=== PATIENT | female | born 1960 | race Hispanic/Latino ===

== ENCOUNTER 2020-09-17 13:15 | Emergency (ER) | payer MEDICARE ==
[2020-09-17] MEDS ORDERED: ACETAMINOPHEN 325 MG TAB PO ONE (14:59)
--- NOTE | 2020-09-17 15:53 | Cat Scan Report ---
CT head/brain wo con INDICATION / CLINICAL INFORMATION: 60 years Female; fall out of bed, neck pain. TECHNIQUE: Routine CT head without contrast. All CT scans at this location are performed using CT dos e reduction for ALARA by means of automated exposure control. COMPARISON: None. FINDINGS: BRAIN / INTRACRANIAL CONTENTS: There is mild cerebral white matter disease most consistent with micro vascular angiopathy. Findings a most notable along the left frontal horn. There is also mild cerebral atrophy along with mild prominence of the ventricular system. There is no clear CT evidence of acute intracranial hemorrhage or significant mass effect. ORBITS: No significant abnormality of visualized orbits. SINUSES / MASTOIDS: There is mild focal opacification within the visualized maxillary sinuses bilater ally. CRANIOCERVICAL JUNCTION: No significant abnormality. ADDITIONAL FINDINGS: There is mild incidental hyperostosis frontalis interna. IMPRESSION: 1. This mild microvascular angiopathy without CT evidence of acute intracranial hemorrhage. Signer Name: Anibal Lester MD Signed: 09/17/2020 3:49 PM Workstation Name: [id number]
--- NOTE | 2020-09-17 16:01 | Cat Scan Report ---
CT cervical spine wo con INDICATION / CLINICAL INFORMATION: 60 years Female; fall out of bed, neck pain. TECHNIQUE: Axial CT images of the cervical spine were obtained. Sagittal and coronal reformatted images were pr oduced. All CT scans at this location are performed using CT dose reduction for ALARA by means of aut omated exposure control. COMPARISON: None available. FINDINGS: POST-SURGICAL CHANGES: None. ALIGNMENT: There is slight curvature of the cervical spine, convex toward the right. Additionally, th ere is minimal anterolisthesis at C3-L4 and C4-5 which may be on a degenerative basis. VERTEBRAE: There is no clear CT evidence of acute fracture involving the cervical spine at. There are milder degenerative endplate changes anteriorly from C3-4 to C6-7. This anterior osteophytic formati on at C5-6. INTRAVERTEBRAL DISCS: This broad-based right-sided disco bulge at C3 L4 which appears to mildly lucio en the right ventral cord and encroaches on the right lateral recess. Mild right neural foraminal pedrito rowing. The central disco bulge and ligamentum flavum hypertrophy at C4 L5 appears to result in mild to moder ate deformity of the ventral cord. Furthermore, there is similar degree of right foraminal narrowing. The disc bulge at C5-6 effaces the ventral subarachnoid space at. There is moderate right neural fora shawn narrowing at. There is similar degree of foraminal narrowing on the right at C6-7. PARASPINAL SOFT TISSUES: No prevertebral soft tissue fluid collections are identified. ADDITIONAL FINDINGS: None. IMPRESSION: 1. There is no CT evidence of acute fracture involving the cervical spine. 2. There are multilevel degenerative changes as detailed above. Signer Name: Anibal Lester MD Signed: 09/17/2020 3:57 PM Workstation Name: [id number]
--- NOTE | 2020-09-17 16:17 | XRay Report ---
LEFT SHOULDER 3 VIEWS INDICATION / CLINICAL INFORMATION: fall out of bed, left shoulder pain. COMPARISON: None available. FINDINGS: There appears to be a minimally displaced fracture of the very distal end of the clavicle. Humerus and glenoid fossa are unremarkable. Signer Name: Germain Shafer MD Signed: 09/17/2020 4:13 PM Workstation Name: [id number]
--- NOTE | 2020-09-17 16:57 | Emergency Department Report ---
ED Fall HPI - General Chief Complaint: Fall Stated Complaint: FALL/SHOULDER INJURY/LOW GLUCOSE Time Seen by Provider: 09/17/20 14:59 Source: patient, family Mode of arrival: Ambulatory - History of Present Illness Initial Comments: Patient is a 60-year-old female presents emergency room with complaints of a fall that occurred yesterday morning. Patient states that she fell out of the bed. She is currently in a facility. The caregiver at the facility thought that maybe her sugar had dropped and that is why she fell, but her sugar log shows all stable blood sugar readings. The patient states that she has left shoulder pain and neck pain. She denies any hitting her head or loss of consciousness. She denies any dizziness, chest pain, shortness of breath, weakness prior to the fall. She states that she believes she may have just rolled over and fell out of bed. She denies any vision changes, vomiting, numbness, unilateral weakness, bowel or bladder incontinence. She has a past medical history of diabetes. She has an allergy to atorvastatin, penicillin, sulfa. - Related Data Previous Rx's Medication Instructions Recorded Last Taken Type Acetaminophen [Tylenol] 650 mg PO Q8HR PRN #20 capsule 09/17/20 Unknown Rx Allergies Allergy/AdvReac Type Severity Reaction Status Date / Time atorvastatin [From Lipitor] Allergy Unknown Verified 09/17/20 13:35 Penicillins Allergy Unknown Verified 09/17/20 13:35 Sulfa (Sulfonamide Allergy Unknown Verified 09/17/20 13:35 Antibiotics) ED Review of Systems ROS: Stated complaint: FALL/SHOULDER INJURY/LOW GLUCOSE Other details as noted in HPI Comment: All other systems reviewed and negative ED Past Medical Hx - Past Medical History Previous Medical History?: No Additional medical history: Scoliosis - Surgical History Past Surgical History?: Yes Additional Surgical History: cataract - Medications Home Medications: Home Medications Medication Instructions Recorded Confirmed Last Taken Type Acetaminophen [Tylenol] 650 mg PO Q8HR PRN #20 capsule 09/17/20 Unknown Rx ED Physical Exam - General Limitations: No Limitations General appearance: alert, in no apparent distress - Head Head exam: Present: atraumatic, normocephalic - Eye Eye exam: Present: normal appearance, PERRL, EOMI. Absent: periorbital swelling, periorbital tenderness - ENT ENT exam: Present: mucous membranes moist - Neck Neck exam: Present: normal inspection, tenderness (bilateral C-spine paraspinal muscular ttp, no midline C-spine ttp, no step offs, no deformities), full ROM - Respiratory Respiratory exam: Present: normal lung sounds bilaterally. Absent: respiratory distress, wheezes, rales, rhonchi, stridor, chest wall tenderness, accessory muscle use, decreased breath sounds, prolonged expiratory - Cardiovascular Cardiovascular Exam: Present: regular rate, normal rhythm, normal heart sounds. Absent: systolic murmur, diastolic murmur, rubs, gallop - Extremities Exam Extremities exam: Present: other (ttp to the left anterior and left lateral shoulder, there is ecchymosis present to the regional of the left humeral head, clavicles are equal, unable to fully raise the shoulder secondary to pain, no obvious deformity, neurovascularly intact) - Back Exam Back exam: Present: normal inspection, full ROM. Absent: paraspinal tenderness, vertebral tenderness - Neurological Exam Neurological exam: Present: alert, oriented X3, CN II-XII intact, normal gait. Absent: motor sensory deficit - Psychiatric Psychiatric exam: Present: normal affect, normal mood - Skin Skin exam: Present: warm, dry, intact ED Course Vital Signs 09/17/20 09/17/20 09/17/20 13:33 15:12 18:00 Temperature 98.1 F Pulse Rate 60 Respiratory 18 18 18 Rate Blood Pressure 216/80 158/90 [Right] O2 Sat by Pulse 99 100 Oximetry 09/17/20 18:13 Temperature Pulse Rate Respiratory 18 Rate Blood Pressure [Right] O2 Sat by Pulse Oximetry ED Medical Decision Making - Lab Data Vital Signs 09/17/20 09/17/20 09/17/20 13:33 15:12 18:00 Temperature 98.1 F Pulse Rate 60 Respiratory 18 18 18 Rate Blood Pressure 216/80 158/90 [Right] O2 Sat by Pulse 99 100 Oximetry 09/17/20 18:13 Temperature Pulse Rate Respiratory 18 Rate Blood Pressure [Right] O2 Sat by Pulse Oximetry - Radiology Data Radiology results: report reviewed Ordering Physician: GAMALIEL HORTA Date of Service: 09/17/20 Procedure(s): XR shoulder 2+V LT Accession Number(s): [id number] cc: GAMALIEL HORTA Fluoro Time In Minutes: LEFT SHOULDER 3 VIEWS INDICATION / CLINICAL INFORMATION: fall out of bed, left shoulder pain. COMPARISON: None available. FINDINGS: There appears to be a minimally displaced fracture of the very distal end of the clavicle. Humerus and glenoid fossa are unremarkable. Signer Name: Germain Shafer MD Signed: 09/17/2020 4:13 PM Workstation Name: [id number] Transcribed By: TM Dictated By: Germain Shafer MD Electronically Authenticated By: Germain Shafer MD Signed Date/Time: 09/17/201612 DD/ 10 TD/TT: Ordering Physician: GAMALIEL HORTA Date of Service: 09/17/20 Procedure(s): CT cervical spine wo con Accession Number(s): [id number] cc: GAMALIEL HORTA CT cervical spine wo con INDICATION / CLINICAL INFORMATION: 60 years Female; fall out of bed, neck pain. TECHNIQUE: Axial CT images of the cervical spine were obtained. Sagittal and coronal reformatted images were produced. All CT scans at this location are performed using CT dose reduction for ALARA by means of automated exposure control. COMPARISON: None available. FINDINGS: POST-SURGICAL CHANGES: None. ALIGNMENT: There is slight curvature of the cervical spine, convex toward the right. Additionally, there is minimal anterolisthesis at C3-L4 and C4-5 which may be on a degenerative basis. VERTEBRAE: There is no clear CT evidence of acute fracture involving the cervical spine at. There are milder degenerative endplate changes anteriorly from C3-4 to C6-7. This anterior osteophytic formation at C5-6. INTRAVERTEBRAL DISCS: This broad-based right-sided disco bulge at C3 L4 which appears to mildly flatten the right ventral cord and encroaches on the right lateral recess. Mild right neural foraminal narrowing. The central disco bulge and ligamentum flavum hypertrophy at C4 L5 appears to result in mild to moderate deformity of the ventral cord. Furthermore, there is similar degree of right foraminal narrowing. The disc bulge at C5-6 effaces the ventral subarachnoid space at. There is moderate right neural foraminal narrowing at. There is similar degree of foraminal narrowing on the right at C6-7. PARASPINAL SOFT TISSUES: No prevertebral soft tissue fluid collections are identified. ADDITIONAL FINDINGS: None. IMPRESSION: 1. There is no CT evidence of acute fracture involving the cervical spine. 2. There are multilevel degenerative changes as detailed above. Signer Name: Anibal Lester MD Signed: 09/17/2020 3:57 PM Workstation Name: [id number] Transcribed By: MR Dictated By: Anibal Lester MD Electronically Authenticated By: Anibal Lester MD Signed Date/Time: 09/17/20 1557 DD/ 154 TD/TT: Ordering Physician: GAMALIEL HORTA Date of Service: 09/17/20 Procedure(s): CT head/brain wo con Accession Number(s): [id number] cc: GAMALIEL HORTA CT head/brain wo con INDICATION / CLINICAL INFORMATION: 60 years Female; fall out of bed, neck pain. TECHNIQUE: Routine CT head without contrast. All CT scans at this location are performed using CT dose reduction for ALARA by means of automated exposure control. COMPARISON: None. FINDINGS: BRAIN / INTRACRANIAL CONTENTS: There is mild cerebral white matter disease most consistent with microvascular angiopathy. Findings a most notable along the left frontal horn. There is also mild cerebral atrophy along with mild prominence of the ventricular system. There is no clear CT evidence of acute intracranial hemorrhage or significant mass effect. ORBITS: No significant abnormality of visualized orbits. SINUSES / MASTOIDS: There is mild focal opacification within the visualized maxillary sinuses bilaterally. CRANIOCERVICAL JUNCTION: No significant abnormality. ADDITIONAL FINDINGS: There is mild incidental hyperostosis frontalis interna. IMPRESSION: 1. This mild microvascular angiopathy without CT evidence of acute intracranial hemorrhage. Signer Name: Anibal Lester MD Signed: 09/17/2020 3:49 PM Workstation Name: [id number] Transcribed By: MR Dictated By: Anibal Lester MD Electronically Authenticated By: Anibal Lester MD Signed Date/Time: 09/17/20 154 DD/ 1545 TD/TT: - Medical Decision Making Patient is a 60-year-old female presents emergency room with complaints of a fall that occurred yesterday morning. Patient states that she fell out of the bed. She is currently in a facility. The caregiver at the facility thought that maybe her sugar had dropped and that is why she fell, but her sugar log shows all stable blood sugar readings. The patient states that she has left shoulder pain and neck pain. She denies any hitting her head or loss of co nsciousness. She denies any dizziness, chest pain, shortness of breath, weakness prior to the fall. She states that she believes she may have just rolled over and fell out of bed. She denies any vision changes, vomiting, numbness, unilateral weakness, bowel or bladder incontinence. She has a past medical history of diabetes. She has an allergy to atorvastatin, penicillin, sulfa. Initial triage vitals with elevated blood pressure which significantly improved upon repeat. On exam:bilateral C-spine paraspinal muscular ttp, no midline C-spine ttp, no step offs, no deformities, ttp to the left anterior and left lateral shoulder, there is ecchymosis present to the regional of the left humeral head, clavicles are equal, unable to fully raise the shoulder secondary to pain, no obvious deformity, neurovascularly intact, no focal neuro deficit, normal gait. XR left shoulder: There appears to be a minimally displaced fracture of the very distal end of the clavicle. Humerus and glenoid fossa are unremarkable. CT cervical spine without contrast: 1. There is no CT evidence of acute fracture involving the cervical spine. 2. There are multilevel degenerative changes as detailed above. CT head: 1. This mild microvascular angiopathy without CT evidence of acute intracranial hemorrhage. Patient given Tylenol in the emergency department and symptoms improved. Discussed all findings with patient and patient's caregiver. Patient placed in shoulder immobilizer by nurse and remained neurovascularly intact. Patient given prescription for Tylenol. Advised patient and patient's caregiver Please take medication as prescribed as needed. Please do not remove splint. Follow-up with orthopedic doctor. Is very important that you follow-up. Return to emergency room for new or worsening symptoms. - Differential Diagnosis Strain, sprain, fracture, dislocation, ICH, SDH, epidural hematoma Critical care attestation.: If time is entered above; I have spent that time in minutes in the direct care of this critically ill patient, excluding procedure time. ED Disposition Clinical Impression: Closed left clavicular fracture Qualifiers: Encounter type: initial encounter Clavicle location: lateral end Fracture alignment: displaced Qualified Code(s): S42.032A - Displaced fracture of lateral end of left clavicle, initial encounter for closed fracture Cervical strain Qualifiers: Encounter type: initial encounter Qualified Code(s): S16.1XXA - Strain of muscle, fascia and tendon at neck level, initial encounter Disposition: DC-01 TO HOME OR SELFCARE Is pt being admited?: No Does the pt Need Aspirin: No Condition: Stable Instructions: Clavicle Fracture, [id number], Cervical Sprain Additional Instructions: Please take medication as prescribed as needed. Please do not remove splint. Follow-up with orthopedic doctor. Is very important that you follow-up. Return to emergency room for new or worsening symptoms. Prescriptions: Acetaminophen [Tylenol] 650 mg PO Q8HR PRN #20 capsule PRN Reason: pain Referrals: SHIVA LOPEZ MD [Staff Physician] - 2-3 Days [facility] [Provider Group] - 2-3 Days Time of Disposition: 16:57 Print Language: KYRGYZ
[2020-09-17 18:29] VITALS: BP 158/90
== END 2020-09-17 18:28 | disposition home or self-care (01) ==
LOC: ED 13:15
DX: S42.032A Displaced fracture of lateral end of left clavicle, initial encounter for closed fracture (principal); S16.1XXA Strain of muscle, fascia and tendon at neck level, initial encounter; R51.9 Headache, unspecified; Z98.890 Other specified postprocedural states; Z79.899 Other long term (current) drug therapy; Z88.0 Allergy status to penicillin; Z88.2 Allergy status to sulfonamides; Z88.8 Allergy status to other drugs, medicaments and biological substances; W06.XXXA Fall from bed, initial encounter; Y93.89 Activity, other specified; Y92.89 Other specified places as the place of occurrence of the external cause; Y99.8 Other external cause status
CPT/HCPCS: 70450; 72125; 82962